=== PATIENT | male | born 1955 | race African-American/Black ===

== ENCOUNTER 2019-07-17 08:42 | Emergency (ER) | payer BC ==
[2019-07-17] MEDS ORDERED: LIDOCAINE VISCOUS 2% SOLN 15 ML UDC ONE (08:53)
--- NOTE | 2019-07-17 09:00 | EDPHYS ---
Physician Documentation [facility] Name: Kasi Soliman Age: 63 yrs Sex: Male : 1955 Arrival Date: 07/17/2019 Time: 08:43 Bed 20 Private MD: Marvin Booker ED Physician Juvenal Mustafa HPI: 07/17 08:55 This 63 yrs old Black Male presents to ER via Ambulatory with complaints of Foreign ps1 Body In Ear. 08:55 patient had cotton from q-tip in right ear for 5 days. Went to primary and unable to ps1 get it out. Fullness sensation in ear. No hearing loss or fever. Non-painful. . Historical: - Allergies: 08:49 No Known Allergies; hb - Home Meds: 08:49 None [Active]; hb - PMHx: 08:49 None; hb - PSHx: 08:49 None; hb - Immunization history:: Adult Immunizations up to date. - Social history:: Smoking status: Patient/guardian denies using tobacco. - Ebola Screening: : No symptoms or risks identified at this time. ROS: 08:55 Constitutional: Negative for fever, chills, and weight loss. ps1 08:55 ENT: Positive for foreign body sensation, Negative for drainage from ear(s), ear pain, hearing loss, tinnitus. 08:55 All other systems are negative. Exam: 08:55 Constitutional: This is a well developed, well nourished patient who is awake, alert, ps1 and in no acute distress. Head/Face: Normocephalic, atraumatic. Eyes: Pupils equal round and reactive to light, extra-ocular motions intact. Lids and lashes normal. Conjunctiva and sclera are non-icteric and not injected. 08:55 ENT: External ear(s): are unremarkable, Ear canal(s): foreign body, a piece of a Q-tip, in the right external ear canal, Nose: is normal. Vital Signs: 08:49 BP 148 / 88; Pulse 86; Resp 16; Temp 98.1; Pulse Ox 100% ; Weight 108.86 kg; Height 6 hb ft. 3 in. (190.50 cm); Pain 0/10; 08:49 Body Mass Index 30.00 (108.86 kg, 190.50 cm) hb Procedures: 08:57 Foreign Body Removal: Cotton from qtip, from the right ear canal, by using alligator ps1 clamps, Dressing: none, The patient tolerated the removal well. MDM: 08:57 Data reviewed: vital signs, nurses notes, and as a result, I will discharge patient. ps1 Counseling: I had a detailed discussion with the patient and/or guardian regarding: the historical points, exam findings, and any diagnostic results supporting the discharge/admit diagnosis, to return to the emergency department if symptoms worsen or persist or if there are any questions or concerns that arise at home. 08:59 Patient medically screened. ps1 Administered Medications: No medications were administered Disposition: 07/17/19 08:59 Discharged to Home. Impression: Foreign body removal, right ear. - Condition is Stable. - Discharge Instructions: Ear Foreign Body. - Work release form, Medication Reconciliation Form, Thank You Letter, Antibiotic Education, Prescription Opioid Use form. - Follow up: Marvin Booker MD; When: As needed. Follow up: Emergency Department; When: As needed; Reason: Fever > 102 F, Worsening of condition. - Problem is new. - Symptoms are resolved. Signatures: Lesa Pierson RN RN hb Leonela Díaz RN RN tw2 Juvenal Mustafa MD MD ps1 Corrections: (The following items were deleted from the chart) 09:07 08:59 07/17/2019 08:59 Discharged to Home. Impression: Foreign body removal, right ear. tw2 Condition is Stable. Forms are Medication Reconciliation Form, Thank You Letter, Antibiotic Education, Prescription Opioid Use. Follow up: Marvin Booker; When: As needed. Follow up: Emergency Department; When: As needed; Reason: Fever > 102 F, Worsening of condition. Problem is new. Symptoms are resolved. ps1
--- NOTE | 2019-07-17 09:00 | ER ---
Nurse's Notes [facility] Name: Kasi Soliman Age: 63 yrs Sex: Male : 1955 Arrival Date: 07/17/2019 Time: 08:43 Bed 20 Private MD: Marvin Booker Diagnosis: Foreign body removal, right ear Presentation: 07/17 08:48 Presenting complaint: Cotton in right ear x 4 days. Transition of care: patient was not hb received from another setting of care. Onset of symptoms was July 14, 2019. Risk Assessment: Do you want to hurt yourself or someone else? Patient reports no desire to harm self or others. Initial Sepsis Screen: Does the patient meet any 2 criteria? No. Patient's initial sepsis screen is negative. Does the patient have a suspected source of infection? No. Patient's initial sepsis screen is negative. Care prior to arrival: None. 08:48 Method Of Arrival: Ambulatory hb 08:48 Acuity: VERNA 4 hb Triage Assessment: 08:50 General: Appears in no apparent distress. Behavior is calm, cooperative, appropriate tw2 for age. EENT: Reports foreign body in RIGHT ear.. Neuro: Level of Consciousness is awake, alert, obeys commands, Oriented to person, place, time, situation. Respiratory: Airway is patent Respiratory effort is even, unlabored, Respiratory pattern is regular, symmetrical. 09:07 Pain: Complains of pain in right ear. tw2 Historical: - Allergies: 08:49 No Known Allergies; hb - Home Meds: 08:49 None [Active]; hb - PMHx: 08:49 None; hb - PSHx: 08:49 None; hb - Immunization history:: Adult Immunizations up to date. - Social history:: Smoking status: Patient/guardian denies using tobacco. - Ebola Screening: : No symptoms or risks identified at this time. Screenin:05 Abuse screen: Denies threats or abuse. Nutritional screening: No deficits noted. tw2 Nutritional screening: No deficits noted. Tuberculosis screening: No symptoms or risk factors identified. Fall Risk None identified. Assessment: 09:06 Reassessment: Patient appears in no apparent distress at this time. No changes from tw2 previously documented assessment. Patient states feeling better. Patient states symptoms have improved. Vital Signs: 08:49 BP 148 / 88; Pulse 86; Resp 16; Temp 98.1; Pulse Ox 100% ; Weight 108.86 kg; Height 6 hb ft. 3 in. (190.50 cm); Pain 0/10; 08:49 Body Mass Index 30.00 (108.86 kg, 190.50 cm) ED Course: 08:43 Patient arrived in ED. rg4 08:44 Marvin Booker MD is Private Physician. rg4 08:46 Juvenal Mustafa MD is Attending Physician. ps1 08:48 Triage completed. hb 08:48 Bed in low position. Call light in reach. tw2 08:49 Leonela Díaz, RN is Primary Nurse. tw2 08:49 Arm band placed on. hb 08:58 Marvin Booker MD is Referral Physician. ps1 09:06 No provider procedures requiring assistance completed. Patient did not have IV access tw2 during this emergency room visit. Administered Medications: No medications were administered Outcome: 08:59 Discharge ordered by MD. ps1 09:06 Discharged to home ambulatory. tw2 09:06 Condition: stable 09:06 Discharge instructions given to patient, Instructed on discharge instructions, follow up and referral plans. Demonstrated understanding of instructions, follow-up care. 09:07 Patient left the ED. tw2 Signatures: Lesa Pierson RN RN Leonela Díaz RN RN tw2 Perla Guzmán rg4 Juvenal Mustafa MD MD ps1 Corrections: (The following items were deleted from the chart) 09:07 08:50 EENT: Reports foreign body in LEFT ear.. tw2 tw2
[2019-07-17 09:20] VITALS: BP 148/88; TEMP 98.1; O2SAT 100
== END 2019-07-17 09:07 | disposition home or self-care (01) ==
LOC: ER 08:42
PROC: 09C3XZZ Extirpation of Matter from Right External Auditory Canal, External Approach (ICD-10-PCS; principal; 2019-07-17)
DX: T16.1XXA Foreign body in right ear, initial encounter (principal)
CPT/HCPCS: 99281

== ENCOUNTER 2020-04-25 09:04 | Emergency (ER) | payer BC ==
--- NOTE | 2020-04-25 09:24 | EDPHYS ---
Physician Documentation [facility] Name: Kasi Soliman Age: 64 yrs Sex: Male : 1955 Arrival Date: 04/25/2020 Time: 09:06 Bed 6 Private MD: Marvin Booker ED Physician Phil Gonzalez Historical: - Allergies: 04/25 09:09 No Known Allergies; rb1 - Home Meds: 09:09 Unknown - BP Medication [Active]; rb1 - PMHx: 09:09 Hypertension; rb1 - PSHx: 09:09 abdomen; Knee surgery; rb1 - Immunization history:: Adult Immunizations up to date. - Social history:: Smoking status: Patient/guardian denies using. Vital Signs: 09: BP 173 / 95; Pulse 66; Resp 17; Temp 98.4(O); Pulse Ox 97% ; Weight 127.01 kg; Height 6 rb1 ft. 3 in. (190.50 cm); Pain 07/28; 09:09 Body Mass Index 35.00 (127.01 kg, 190.50 cm) rb1 MDM: 09:21 Patient medically screened. jr8 Administered Medications: No medications were administered Disposition: 04/25/20 09:24 Discharged to Home. Impression: Low back pain. - Condition is Stable. - Discharge Instructions: Back Pain, Adult, Musculoskeletal Pain, Heat Therapy. - Prescriptions for meloxicam 15 mg Oral tablet - take 1 tablet by ORAL route once daily As needed; 12 tablet. Robaxin 500 mg Oral Tablet - take 2 tablet by ORAL route every 6 hours As needed; 40 tablet. - Work release form, Medication Reconciliation Form, Thank You Letter, Antibiotic Education, Prescription Opioid Use form. - Follow up: Marvin Booker MD; When: As needed; Reason: Recheck today's complaints, Continuance of care, Re-evaluation by your physician. - Problem is new. - Symptoms have improved. Signatures: Luiz Salmeron PA PA jr8 Brielle Valero, RN RN rb1 Corrections: (The following items were deleted from the chart) 09:31 09:24 04/25/2020 09:24 Discharged to Home. Impression: Low back pain. Condition is rb1 Stable. Forms are Medication Reconciliation Form, Thank You Letter, Antibiotic Education, Prescription Opioid Use. Follow up: Marvin Booker; When: As needed; Reason: Recheck today's complaints, Continuance of care, Re-evaluation by your physician. Problem is new. Symptoms have improved. jr8
--- NOTE | 2020-04-25 09:24 | ER ---
Nurse's Notes [facility] Name: Kasi Soliman Age: 64 yrs Sex: Male : 1955 Arrival Date: 04/25/2020 Time: 09:06 Bed 6 Private MD: Marvin Booker Diagnosis: Low back pain Presentation: 04/25 09:09 Chief complaint: Patient states: Low back pain that started on Friday 07/28. rb1 09: Coronavirus screen: At this time, the client does not indicate any symptoms associated rb1 with coronavirus-19. Ebola Screen: Patient denies travel to an Ebola-affected area in the 21 days before illness onset. Initial Sepsis Screen: Does the patient meet any 2 criteria? No. Patient's initial sepsis screen is negative. Does the patient have a suspected source of infection? No. Patient's initial sepsis screen is negative. Risk Assessment: Do you want to hurt yourself or someone else? Patient reports no desire to harm self or others. Onset of symptoms was April 23, 2020. 09:09 Method Of Arrival: Ambulatory rb1 09: Acuity: VERNA 4 rb1 Triage Assessment: 09:09 General: Appears in no apparent distress. comfortable, Behavior is calm, cooperative. rb1 Pain: Complains of pain in lumbar area and right low back Pain radiates to right leg Pain currently is 1 out of 10 on a pain scale. Pain began Wednesday. Neuro: Level of Consciousness is awake, alert, obeys commands, Oriented to person, place, time, situation. Cardiovascular: Capillary refill < 3 seconds. Respiratory: Airway is patent Respiratory effort is even, unlabored, Respiratory pattern is regular, symmetrical. GI: Reports diarrhea. : No signs and/or symptoms were reported regarding the genitourinary system. Musculoskeletal: Range of motion: intact in all extremities. Historical: - Allergies: : No Known Allergies; rb1 - Home Meds: : Unknown - BP Medication [Active]; rb1 - PMHx: 09: Hypertension; rb1 - PSHx: 09: abdomen; Knee surgery; rb1 - Immunization history:: Adult Immunizations up to date. - Social history:: Smoking status: Patient/guardian denies using. Screenin: Abuse screen: Denies threats or abuse. Nutritional screening: No deficits noted. rb1 Tuberculosis screening: No symptoms or risk factors identified. Fall Risk None identified. Assessment: 09:09 General: See triage assessment. rb1 Vital Signs: 09:09 BP 173 / 95; Pulse 66; Resp 17; Temp 98.4(O); Pulse Ox 97% ; Weight 127.01 kg; Height 6 rb1 ft. 3 in. (190.50 cm); Pain 07/28; 09:09 Body Mass Index 35.00 (127.01 kg, 190.50 cm) [facility] ED Course: :06 Patient arrived in ED. ag5 09:06 Marvin Booker MD is Private Physician. ag5 09:08 [facility] jr8 09:08 Phil Gonzalez MD is Attending Physician. jr8 09:08 Phil Gonzalez MD is Attending Physician. jr8 09:08 Brielle Valero, GUIDO is Primary Nurse. rb1 09:09 Arm band placed on right wrist. rb1 09:09 Patient has correct armband on for positive identification. Bed in low position. Call rb1 light in reach. Side rails up X 1. Pulse ox on. NIBP on. 09:16 Triage completed. rb1 09:24 Marvin Booker MD is Referral Physician. jr8 09:31 No provider procedures requiring assistance completed. Patient did not have IV access rb1 during this emergency room visit. Administered Medications: No medications were administered Outcome: :24 Discharge ordered by . jr8 09:31 Patient left the ED. rb1 09:31 Discharged to home ambulatory. rb1 09:31 Condition: stable :31 Discharge instructions given to patient, Instructed on discharge instructions, follow up and referral plans. medication usage, Demonstrated understanding of instructions, follow-up care, medications, Prescriptions given X 2. Signatures: Luiz Salmeron PA PA jr8 Brielle Valero, RN RN rb1 ZackJeferson ag5
[2020-04-25 09:37] VITALS: BP 173/95; TEMP 98.4; O2SAT 97
== END 2020-04-25 09:31 | disposition home or self-care (01) ==
LOC: ER 09:04
DX: M54.5 Low back pain (principal); I10 Essential (primary) hypertension
CPT/HCPCS: 99283